=== PATIENT | female | born 1945 | race Caucasian/White ===

== ENCOUNTER → 2017-01-24 | Outpatient (CLI) | payer MEDICARE ==
[~2017-01-24] MED LIST: ALBU1AER INH; ASPI81CH PO; CETI10CA3 PO; CITRTAB7 PO; DENO60P SQ; ERGO2000 PO; FLOV110A IN; LEXA5SOL PO; MAGN400S7 PO; MECL25 PO; MULT-65 PO; NORV5TAB PO; OXAZ15CA2 PO; PANT40TA3 PO; RISE30 PO; TRIA1CAP PO
[2017-01-24 11:51] LABS: AUTOMATED NEUTROPHIL # 3.7 TH/MM3 (1.8-7.7); BASOPHIL % 0.8 % (0.0-2.0); EOSINOPHIL # 0.1 TH/MM3 (0-0.4); EOSINOPHIL % 1.3 % (0.0-4.0); HEMATOCRIT 43.3 % (35.0-46.0); HEMO FLAGS DIFF FINAL; LYMPH % 26.7 % (9.0-44.0); LYMPHOCYTE # 1.7 TH/MM3 (1.0-4.8); MEAN CELL VOLUME 88.6 FL (80.0-100.0); MEAN CORPUSCULAR HEMOGLOBIN 29.9 PG (27.0-34.0); MEAN CORPUSCULAR HGB CONC 33.8 % (32.0-36.0); MONO % 10.9 % (0.0-8.0); NEUT % 60.3 % (16.0-70.0); PLATELET COUNT 254 TH/MM3 (150-450); RED BLOOD COUNT 4.89 MIL/MM3 (4.00-5.30); RED CELL DISTRIBUTION WIDTH 13.8 % (11.6-17.2); WHITE BLOOD COUNT 6.2 TH/MM3 (4.0-11.0)
[2017-01-24 12:22] LABS: BICARBONATE 29.2 MEQ/L (21.0-32.0); POTASSIUM 3.3 MEQ/L (3.5-5.1)
--- NOTE | 2017-01-24 18:21 | EKG ---
Date Performed: 01/24/2017 Time Performed: 10:01:45 PTAGE: 71 years EKG: Sinus rhythm INCOMPLETE RIGHT BUNDLE BRANCH BLOCK BORDERLINE ECG NO PREVIOUS TRACING DOCTOR: Hero Cedeno Interpretating Date/Time 01/24/2017 18:19:58
== END ==
LOC: CPRE 09:45
PROVIDERS: ATTEND Orthopaedic Surgery Orthopaedic Surgery of the Spine
DX: Z01.810 Encounter for preprocedural cardiovascular examination (principal); Z01.812 Encounter for preprocedural laboratory examination; M48.06 Spinal stenosis, lumbar region; I45.10 Unspecified right bundle-branch block
CPT/HCPCS: 36415; 80048; 85025; 93005

== ENCOUNTER → 2017-02-02 | Day surgery (SDC) | payer MEDICARE ==
[~2017-02-02] MED LIST changes: +*morphine SULFATE 8 MG/ML PERIprocedure ONLY ONE; +ACETAMINOPHEN 1000 MG/100 ML VIAL IV ONE; +ACETAMINOPHEN/HYDROcodone 325 MG/5 MG TAB PO PRN; -ALBU1AER INH; +ARTIFICIAL TEARS OPTH OINT 3.5 APPLIC/3.5 GM TUBO ONE; +BUPIVACAINE/EPINEPHRINE 0.5% PF 30 ML VIAL ONE; +DEXAMETHASONE SOD PHOS 4 MG/ML VIAL ONE; +DO NOT ADM ANY ANTICOAGULANT DRUGS PRN; +FAMOTIDINE 20 MG/2 ML VIAL ONE; -FLOV110A IN; +GENTAMICIN SULFATE 80 MG/2 ML VIAL ONE; +INSULIN HUMAN REGULAR 1,000 UNITS/10 ML VIAL SQ PRN; +LACTATED RINGER'S 1000 ML IV PRN; -LEXA5SOL PO; -MECL25 PO; +METOPROLOL TARTRATE 25 MG TAB PO PRN; +MIDAZOLAM HCL 2 MG/2 ML VIAL ONE; -MULT-65 PO; +NEOSTIGMINE 3 MG/3 ML SYR IV ONE; -NORV5TAB PO; +ONDANSETRON HCL 4 MG/2 ML VIAL IV PUSH ONE; -OXAZ15CA2 PO; +POVIDONE IODINE 5% (ANTISEPSIS KIT) 4 APPLICATIONS EACH NARE PRN; +PROPOFOL 200 MG/20 ML AMP IV ONE; -RISE30 PO; +SODIUM CHLORID 0.9% 500 ML IV PRN; +ceFAZolin INJ 1,000 MG VIAL ONE; +fentaNYL CITRATE 250 MCG/5 ML AMP ONE
[2017-02-02 09:31] VITALS: BP 117/88; PULSE 76; RESP 18; TEMP 98.6; O2SAT 95
[2017-02-02 14:15] VITALS: BP 130/78; PULSE 72; RESP 16; TEMP 98; O2SAT 98
--- NOTE | 2017-02-02 15:54 | RADRPT ---
EXAM DATE/TIME: 02/02/2017 11:38 [place] COMPARISON: No previous studies available for comparison. INDICATIONS : Level Localization L4,L5 for laminectomy. MEDICAL HISTORY : None. SURGICAL HISTORY : None. ENCOUNTER: Initial ACUITY: 1 day PAIN SCORE: Non-responsive. LOCATION: Lumbar spine. FINDINGS: Single lateral spot fluoroscopic image obtained in the operating room during a procedure demonstrates an instrument overlying the posterior elements at L4-L5. CONCLUSION: Instruments overlie the L4-L5 level posteriorly. Ulysses Graff MD on February 02, 2017 at 15:51 Board Certified Radiologist. This report was verified electronically.
--- NOTE | 2017-02-03 13:02 | MP ---
cc: NICOLE ENCINAS M.D., ALBERT KOHEN, MICHAEL D. MD MCDONALD, DAVID ARAB, DINESH MD Delmis Mario MD [facility] Fax number [phone] DATE OF SURGERY: 02/02/2017 PREOPERATIVE DIAGNOSIS: L4-5 moderate spinal stenosis. His bilateral lumbar radiculitis Lumbar spine degenerative disc disease, osteoarthritis. POSTOPERATIVE DIAGNOSIS L4-5 moderate spinal stenosis. His bilateral lumbar radiculitis Lumbar spine degenerative disc disease, osteoarthritis. PROCEDURE: L4-5 bilateral hemilaminectomy with decompression nerve root, bilateral foraminotomy, bilateral partial facetectomy. SURGEON: January Marroquin MD OYSTERMAN: Geneva Galdamez, PAC SPECIMENS; None. ESTIMATED BLOOD LOSS: less than 10 CC COMPLICATIONS None ANESTHESIA [place] DRAINS: None. CONDITION: The condition is stable PLAN OF ACTIVITY: Is per orders. PROCEDURE: The patient was brought into the operating room and had satisfactory anesthesia, by department of anesthesia. The patient was carefully transferred onto the [place] spinal frame. All pressure points well-padded. Lumbosacral spine was prepped and draped in usual sterile manner. Localizing x-ray were used to confirm the L4-5 interspace. The 30 cc of local anesthesia was used to anesthetize the operative site. Small midline incision made over L4-5. Dissection into skin and subcutaneous tissue. Paraspinal muscles were bilaterally removed from the L4-5 interspace. A bilateral hemilaminectomy was preformed at L4-5. The patient to have moderate degree of the spinal stenosis with moderately severe foraminal stenosis. Bilateral decompression preformed at L4-5, bilateral foraminal, partial facetectomy. The patient was found to have very satisfactory decompression neurological elements in the midline also bilaterally in the lateral foramen. The wound was irrigated with copious amounts of sterile saline was wound itself was dry no onset of CSF leaks. There was no bleeding. The wound was irrigated copious amounts of saline, the wound itself was dry. The wound was closed in routine manner with the fascia closed #2 Tycron suture. The subcutaneous layer with 2-0 Vicryl. Skin approximated running subcuticular 3-0 Vicryl and Dermabond placed into incision. The patient tolerated the procedure well, was in stable and satisfactory condition. MD Dann Olea /12:05 PM /12:49 PM
== END | disposition home or self-care (01) ==
LOC: HSDC 08:51
PROVIDERS: ATTEND Orthopaedic Surgery Orthopaedic Surgery of the Spine
DX: M48.06 Spinal stenosis, lumbar region (principal); M51.16 Intervertebral disc disorders with radiculopathy, lumbar region; M83.9 Adult osteomalacia, unspecified; M17.9 Osteoarthritis of knee, unspecified; M81.0 Age-related osteoporosis without current pathological fracture; M71.552 Other bursitis, not elsewhere classified, left hip; M71.551 Other bursitis, not elsewhere classified, right hip
CPT/HCPCS: 00630; 63030; 72020; 76000; J0131; J0690; J1100; J1580; J2250; J2270; J2405; J2710; J3010